=== PATIENT | female | born 1965 | race Caucasian/White ===

== ENCOUNTER → 2021-10-03 | Outpatient (CLI) | payer OTHER | LOC: MC.RAD 07:50 | DX: N63.10 Unspecified lump in the right breast, unspecified quadrant (principal) ==

== ENCOUNTER 2021-10-19 06:37 | Day surgery (SDC) | payer OTHER ==
[~2021-10-19] VITALS: Ht 165.1 cm; Wt 90.0 kg
[2021-10-19] MEDS ORDERED: AMOXICILLIN 8751 TAB (07:44)
[2021-10-19] MEDS ORDERED: CELEXA 20MG20 MG/TAB PO (07:48)
[2021-10-19] MEDS ORDERED: PRIL40 PO (07:49)
[2021-10-19 07:53] VITALS: BP 126/80; PULSE 84; TEMP 98.3
[2021-10-19] MEDS ORDERED: NORCO 325 MG-51 TAB PO (11:38)
[2021-10-19 12:10] VITALS: BP 124/72; PULSE 72; TEMP 97.6
--- NOTE | 2021-10-19 12:10 | NUR ---
AWAKE, ALERT. DENIES PAIN AT THIS TIME. DRESSING X 2 INTACT; RIGHT AXILLA AREA AND RIGHT ANTERIOR BREAST. DENIES NAUSEA. PARENTS AT BEDSIDE.
[2021-10-19 12:25] VITALS: BP 118/66; PULSE 75
--- NOTE | 2021-10-19 12:25 | NUR ---
PATIENT CONTINUES TO DENY NAUSEA. COFFEE, GRAPE JUICE COFFEE AND SALTINE CRACKERS PROVIDED PER PATIENT REQUEST
[2021-10-19 12:40] VITALS: BP 112/64; PULSE 75
--- NOTE | 2021-10-19 12:40 | NUR ---
DISCHARGE INSTRUCTIONS REVIEWED WITH PATIENT AND PARENTS. COPY OF INSTRUCTIONS AND EDUCATIONAL MATERIALS PROVIDED.
[2021-10-19 12:55] VITALS: BP 129/70; PULSE 80
--- NOTE | 2021-10-19 13:05 | NUR ---
SITS ON EDGE OF BED. DRESSES SELF. MOTHER WITH PATIENT
--- NOTE | 2021-10-19 13:15 | NUR ---
PATIENT DISCHARGED PER WHEELCHAIR ACCOMPANIED BY THIS NURSE. TO PRIVATE VEHICLE DRIVEN BY FAMILY MEMBER
== END 2021-10-19 13:15 | disposition home or self-care (01) ==
LOC: SDCO 06:37
DX: C50.411 Malignant neoplasm of upper-outer quadrant of right female breast (principal); Z17.0 Estrogen receptor positive status [ER+]; K21.9 Gastro-esophageal reflux disease without esophagitis; F17.210 Nicotine dependence, cigarettes, uncomplicated; Z80.0 Family history of malignant neoplasm of digestive organs
CPT/HCPCS: A4648; J0690; J1100; J1170; J2250; J2405; J2704; J2795; J3010; J7120

== ENCOUNTER → 2021-11-22 | Outpatient (CLI) | payer OTHER ==
[~2021-11-22] MED LIST: AMOXICILLIN 8751 TAB; CELEXA 20MG20 MG/TAB PO; NORCO 325 MG-51 TAB PO; PRIL40 PO
== END ==
LOC: MC.RAD 13:58
DX: C50.111 Malignant neoplasm of central portion of right female breast (principal)

== ENCOUNTER → 2023-02-13 | Outpatient (CLI) | payer OTHER | LOC: COL.RAD 09:07 | DX: S43.432A Superior glenoid labrum lesion of left shoulder, initial encounter (principal); X58.XXXA Exposure to other specified factors, initial encounter ==

== ENCOUNTER → 2023-10-25 | Outpatient (CLI) | payer OTHER | LOC: MC.RAD 07:43 | DX: Z12.31 Encounter for screening mammogram for malignant neoplasm of breast (principal); N64.89 Other specified disorders of breast; Z98.890 Other specified postprocedural states ==

== ENCOUNTER → 2023-11-06 | Outpatient (CLI) | payer OTHER | LOC: MC.RAD 12:30 | DX: C50.111 Malignant neoplasm of central portion of right female breast (principal); Z98.890 Other specified postprocedural states | CPT/HCPCS: 30634; 30636 ==